=== PATIENT | female | born 1970 | race Caucasian/White ===

== ENCOUNTER 2018-03-31 11:55 | Emergency (ER) | payer SELFPAY ==
[2018-03-31] MEDS: KETOROLAC 30 MG INJ IM (13:05)
== END 2018-03-31 14:31 | disposition home or self-care (01) ==
LOC: FTE 11:55
DX: M54.42 Lumbago with sciatica, left side (principal); G89.29 Other chronic pain; M25.552 Pain in left hip
CPT/HCPCS: 72131; 73510; 81025; 96372; 99285-25

== ENCOUNTER 2018-07-19 11:03 | Emergency (ER) | payer MEDICAID, OTHER | END 2018-07-19 13:03 | disposition home or self-care (01) | LOC: FTE 11:03 | DX: J40 Bronchitis, not specified as acute or chronic (principal); L29.9 Pruritus, unspecified | CPT/HCPCS: 99283; Z7502 ==